=== PATIENT | male | born 1935 | race Caucasian/White ===

== ENCOUNTER 2023-04-19 12:31 | Day surgery (SDC) | payer MEDICARE ==
[2023-04-19] MEDS ORDERED: LIDOCAINE HCL 2% 100 MG/5 ML IJ ONE (12:32)
[2023-04-19] MEDS ORDERED: DIPRIVAN 200 MG/20 ML IV ONE (15:31)
[2023-04-19] MEDS ORDERED: Lactated Ringers 1,000 ML IV ONE (16:01)
--- NOTE | 2023-04-19 16:38 | XRAY ---
Indication: Bilateral L4-S1 MBB. Intraoperative fluoroscopy provided for 13 seconds. Single digital spot image submitted for interpretation demonstrates posterior needle tips projecting over the expected left and right L4-S1 nerve roots. Correlate with intraoperative findings/report.
--- NOTE | 2023-04-19 16:46 | XRAY ---
13 seconds of fluoroscopy was used in surgery for a bilateral L4-S1 MBB.
== END 2023-04-19 16:00 | disposition home or self-care (01) ==
LOC: SDC-PAIN 12:31
PROVIDERS: ATTEND Psychiatry & Neurology Pain Medicine
DX: M47.816 Spondylosis without myelopathy or radiculopathy, lumbar region (principal)
CPT/HCPCS: 64493; 64494; 72020; 77002; J2704

== ENCOUNTER 2023-05-17 13:27 | Day surgery (SDC) | payer MEDICARE ==
[2023-05-17] MEDS ORDERED: BUPIVACAINE 0.5% VIAL IJ ONE (13:28)
[2023-05-17] MEDS ORDERED: DIPRIVAN 200 MG/20 ML IV ONE (14:59)
[2023-05-17] MEDS ORDERED: Lactated Ringers 1,000 ML IV ONE (15:14)
--- NOTE | 2023-05-17 16:31 | XRAY ---
Indication: Bilateral L4-S1 MBB. Intraoperative fluoroscopy provided for 10 seconds. Single digital spot image submitted for interpretation demonstrates posterior needle tips projecting over the expected left and right L4-S1 nerve roots. Correlate with intraoperative findings/report.
--- NOTE | 2023-05-17 16:37 | XRAY ---
10 seconds of fluoroscopy was used in surgery for a bilateral L4-S1 MBB.
== END 2023-05-17 15:26 | disposition home or self-care (01) ==
LOC: SDC-PAIN 13:27
PROVIDERS: ATTEND Psychiatry & Neurology Pain Medicine
DX: M47.816 Spondylosis without myelopathy or radiculopathy, lumbar region (principal)
CPT/HCPCS: 64493; 64494; 72020; 77002; J2704

== ENCOUNTER 2023-06-21 13:07 | Day surgery (SDC) | payer MEDICARE ==
[2023-06-21] MEDS ORDERED: XYLOCAINE-MPF 1% 5ML SDV IJ ONE (13:08)
[2023-06-21] MEDS ORDERED: BUPIVACAINE 0.5% VIAL IJ ONE (13:08)
[2023-06-21] MEDS ORDERED: Depo-Medrol 40 MG/ML IM ONE (13:08)
[2023-06-21] MEDS ORDERED: DIPRIVAN 200 MG/20 ML IV ONE (14:45)
[2023-06-21] MEDS ORDERED: Lactated Ringers 1,000 ML IV ONE (14:55)
--- NOTE | 2023-06-21 16:22 | XRAY ---
Indication: Right L4-S1 RFA. Intraoperative fluoroscopy provided for 19 seconds. 3 digital spot image submitted for interpretation demonstrates posterior needle tips projecting over the expected right L4-S1 nerve roots. Correlate with intraoperative findings/report.
--- NOTE | 2023-06-21 17:11 | XRAY ---
19 seconds of fluoroscopy was used in surgery for a right L4-S1 RFA.
== END 2023-06-21 14:52 | disposition home or self-care (01) ==
LOC: SDC-PAIN 13:07
PROVIDERS: ATTEND Psychiatry & Neurology Pain Medicine
DX: M47.816 Spondylosis without myelopathy or radiculopathy, lumbar region (principal)
CPT/HCPCS: 64635; 64636; 72100; 77002; 99100; J1010; J2704

== ENCOUNTER 2023-06-28 11:54 | Day surgery (SDC) | payer MEDICARE ==
[2023-06-28] MEDS ORDERED: Depo-Medrol 40 MG/ML IM ONE (11:55)
[2023-06-28] MEDS ORDERED: BUPIVACAINE 0.5% VIAL IJ ONE (11:55)
[2023-06-28] MEDS ORDERED: XYLOCAINE-MPF 1% 5ML SDV IJ ONE (11:55)
[2023-06-28] MEDS ORDERED: DIPRIVAN 200 MG/20 ML IV ONE (13:43)
[2023-06-28] MEDS ORDERED: Lactated Ringers 1,000 ML IV ONE (13:53)
--- NOTE | 2023-06-28 14:59 | XRAY ---
Indication: Left L4-S1 RFA. Intraoperative fluoroscopy provided for 17 seconds. 3 digital spot image submitted for interpretation demonstrates posterior needle tips projecting over the expected left L4-S1 nerve roots. Correlate with intraoperative findings/report.
--- NOTE | 2023-06-28 17:20 | XRAY ---
17 seconds of fluoroscopy was used in surgery for a left L4-S1 RFA.
== END 2023-06-28 14:16 | disposition home or self-care (01) ==
LOC: SDC-PAIN 11:54
PROVIDERS: ATTEND Psychiatry & Neurology Pain Medicine
DX: M47.816 Spondylosis without myelopathy or radiculopathy, lumbar region (principal)
CPT/HCPCS: 64635; 64636; 72100; 77002; 99100; J1010; J2704

== ENCOUNTER 2023-10-04 12:04 | Day surgery (SDC) | payer MEDICARE ==
[2023-10-04] MEDS ORDERED: Depo-Medrol 40 MG/ML IM ONE (12:05)
[2023-10-04] MEDS ORDERED: BUPIVACAINE 0.5% VIAL IJ ONE (12:05)
[2023-10-04] MEDS ORDERED: DIPRIVAN 200 MG/20 ML IV ONE (13:20)
--- NOTE | 2023-10-04 14:56 | XRAY ---
Indication: Bilateral SI joint injection. Intraoperative fluoroscopy provided for 18 seconds. 2 digital spot image submitted for interpretation demonstrates posterior needle tips projecting over expected left and right SI joints. Small amount of contrast injected for needle tip placement. Correlate with intraoperative findings/report.
[2023-10-04] MEDS ORDERED: Lactated Ringers 1,000 ML IV ONE (15:04)
--- NOTE | 2023-10-04 15:26 | XRAY ---
18 seconds of fluoroscopy was used in surgery for bilateral SI joint injections.
== END 2023-10-04 14:20 | disposition home or self-care (01) ==
LOC: SDC-PAIN 12:04
PROVIDERS: ATTEND Psychiatry & Neurology Pain Medicine
DX: M46.1 Sacroiliitis, not elsewhere classified (principal)
CPT/HCPCS: 01992; 27096; 72202; 77002; 99100; G0260; J2704; Q9966